=== PATIENT | male | born 1955 | race Caucasian/White ===

== ENCOUNTER 2017-12-01 11:28 | Emergency (ER) | payer MEDICAID ==
[2017-12-01 11:40] VITALS: BP 118/74; PULSE 66; RESP 20; TEMP 98; O2SAT 95
--- NOTE | 2017-12-01 12:13 | C.PDOC ---
History Of Present Illness 62-year-old male, presents to the emergency department with complaints of pain and swelling to right great toe for the past three days. States he tried to vut the nail, but symptoms did not improve. He notes some associated discharge coming from the area. Denies fever, numbness/weakness, or any other associated symptoms. No other complaints at this time. Time Seen by Provider: 12/01/17 11:57 Chief Complaint (Nursing): Lower Extremity Problem/Injury History Per: Patient History/Exam Limitations: no limitations Past Medical History Reviewed: Historical Data, Nursing Documentation, Vital Signs Vital Signs: Last Vital Signs Temp 98 F 12/01/17 11:38 Pulse 66 12/01/17 11:38 Resp 20 12/01/17 11:38 BP 118/74 12/01/17 11:38 Pulse Ox 95 12/01/17 12:50 - Medical History PMH: Anxiety, Asthma, Back Problems, Depression, Diabetes, HTN Surgical History: Appendectomy - [facility] Procedures ESOPHAGOGASTRODUODENOSCOPY [EGD] W/CLOSED BIOPSY (12/15/13) Family History: States: No Known Family Hx, Hypertension - Social History Hx Tobacco Use: No Hx Alcohol Use: Yes Hx Substance Use: No - Immunization History Hx Tetanus Toxoid Vaccination: No Hx Influenza Vaccination: Yes Hx Pneumococcal Vaccination: No Review Of Systems Constitutional: Negative for: Fever Musculoskeletal: Positive for: Other (R great toe pain) Physical Exam - Physical Exam Appears: Non-toxic, No Acute Distress Skin: Warm, Dry, No Rash Extremity: Other (R great toe: medial aspect with dried blood. No fluctuance and minimal erythema.) Pulses: Left Dorsalis Pedis: Normal, Right Dorsalis Pedis: Normal ED Course And Treatment O2 Sat by Pulse Oximetry: 95 (on RA) Pulse Ox Interpretation: Normal Medical Decision Making Medical Decision Making: no fluctuance, likely was parnoychia but apppears to have drained, will rx with po abx, follow up and return prec advised Disposition - Disposition Referrals: [facility] [Outside] Disposition: HOME/ ROUTINE Disposition Time: 12:11 Condition: STABLE Additional Instructions: Please follow up with your doctor. Return to the ER for any worsening symptoms, increasing pain/swelling/drainage, fever or for any other concerns. Prescriptions: Amoxicillin/Clavulanate [Augmentin 875 MG-125 MG] 1 tab PO BID #14 tab Sulfamethoxazole/Trimethoprim [Bactrim DS 800 mg-160 mg] 1 tab PO BID #14 tab Instructions: Paronychia (ED) Forms: Gen Discharge Inst Guinean, [facility] (Guinean) Print Language: CROATIAN - Clinical Impression Clinical Impression: Toe infection - Scribe Statement The provider has reviewed the documentation as recorded by the Scribe (Amol Enamorado) All medical record entries made by the Scribe were at my direction and personally dictated by me. I have reviewed the chart and agree that the record accurately reflects my personal performance of the history, physical exam, medical decision making, and the department course for this patient. I have also personally directed, reviewed, and agree with the discharge instructions and disposition.
== END 2017-12-01 12:20 | disposition home or self-care (01) ==
LOC: C.ER 11:28
DX: L08.9 Local infection of the skin and subcutaneous tissue, unspecified (principal)

== ENCOUNTER 2018-04-11 20:12 | Emergency (ER) | payer MEDICAID ==
[2018-04-11 20:30] VITALS: BP 138/73; PULSE 73; RESP 20; TEMP 98.1; O2SAT 97
--- NOTE | 2018-04-11 21:18 | C.PDOC ---
History Of Present Illness 63 year old male presents to the ED c/o acute swelling to the right parotid area that resolved [employer]. Patient was seen by Dr. Kemp earlier the week for and was treated with antibiotics. Patient denies fever, chills, nausea, vomit, diarrhea. Time Seen by Provider: 04/11/18 21:06 Chief Complaint (Nursing): ENT Problem History Per: Patient History/Exam Limitations: None Onset/Duration Of Symptoms: Days Current Symptoms Are (Timing): Still Present Quality (Mouth/Throat): Swelling Severity: None Anticoagulant/Antiplatlet Use?: No Recent Aspirin Use: No Past Medical History Reviewed: Historical Data, Nursing Documentation, Vital Signs Vital Signs: Last Vital Signs Temp 98.1 F 04/11/18 20:28 Pulse 73 04/11/18 20:28 Resp 20 04/11/18 20:28 BP 138/73 04/11/18 20:28 Pulse Ox 97 04/11/18 21:18 - Medical History PMH: Anxiety, Asthma, Back Problems, Depression, Diabetes, HTN Surgical History: Appendectomy - [facility] Procedures ESOPHAGOGASTRODUODENOSCOPY [EGD] W/CLOSED BIOPSY (12/15/13) Family History: States: Hypertension - Social History Hx Tobacco Use: No Hx Alcohol Use: Yes Hx Substance Use: No - Immunization History Hx Tetanus Toxoid Vaccination: No Hx Influenza Vaccination: Yes Hx Pneumococcal Vaccination: No Review Of Systems Constitutional: Negative for: Fever, Chills ENT: Positive for: Mouth Swelling, Throat Pain Cardiovascular: Negative for: Chest Pain Respiratory: Negative for: Cough, Shortness of Breath Gastrointestinal: Negative for: Nausea, Vomiting Skin: Negative for: Rash Neurological: Negative for: Weakness, Numbness Physical Exam - Physical Exam Appears: Non-toxic, No Acute Distress Skin: Normal Color, Warm, Dry Head: Atraumatic, Normacephalic Eye(s): bilateral: Normal Inspection Ear(s): Bilateral: Normal Oral Mucosa: Moist Throat: Erythema, No Exudate, Mass (B/L parotid glands, R > L ) Neck: Normal ROM, Supple Chest: Symmetrical Cardiovascular: Rhythm Regular, No Murmur Respiratory: Normal Breath Sounds, No Rales, No Rhonchi, No Wheezing Gastrointestinal/Abdominal: Soft, No Tenderness, No Guarding, No Rebound Extremity: Normal ROM, No Tenderness, No Swelling Neurological/Psych: Oriented x3, Normal Speech Gait: Steady ED Course And Treatment O2 Sat by Pulse Oximetry: 97 (ON RA) Pulse Ox Interpretation: Normal Medical Decision Making Medical Decision Making: h/o sialoliths with occasional salivery duct stones, already seen by PMD this week, taking PO ABX to prevent parotidtitis no acute swelling now + b/l parotid enlargement but pt denies alcohol abuse ? related to h/o psych meds or parotid stones. Disposition Doctor Will See Patient In The: Office Counseled Patient/Family Regarding: Studies Performed, Diagnosis - Disposition Referrals: James Mitchell MD [Staff Provider] - Aishwarya Kemp MD [Staff Provider] - Disposition: HOME/ ROUTINE Disposition Time: 21:18 Condition: GOOD Additional Instructions: continue to drink plenty of fluids to help prevent parotid gland stones Continue the antibiotics as prescribed by Dr. Kemp Consider referral to ENT for evaluation of chronic parotid gland stones. Instructions: Parotitis Forms: [facility] (Yakut) - Clinical Impression Clinical Impression: Parotid gland enlargement - Scribe Statement The provider has reviewed the documentation as recorded by the Scribe Kuldip Merino All medical record entries made by the Scribe were at my direction and personally dictated by me. I have reviewed the chart and agree that the record accurately reflects my personal performance of the history, physical exam, medical decision making, and the department course for this patient. I have also personally directed, reviewed, and agree with the discharge instructions and disposition.
== END 2018-04-11 21:27 | disposition home or self-care (01) ==
LOC: C.ER 20:12
DX: K11.1 Hypertrophy of salivary gland (principal); E11.9 Type 2 diabetes mellitus without complications; I10 Essential (primary) hypertension

== ENCOUNTER 2018-06-09 18:49 | Emergency (ER) | payer MEDICAID ==
[2018-06-09] MEDS ORDERED: Sodium Chloride 0.9% 1,000 ML IV ONE (20:55)
[2018-06-09 21:14] LABS: BASO # 0.1 K/uL (0.0-0.2); BASO % 0.9 % (0.0-2.0); EOS # 0.3 K/uL (0.0-0.7); EOS % 3.2 % (0.0-4.0); HEMOGLOBIN 13.4 g/dL (12.0-18.0); LYMPH # 3.4 K/uL (1.0-4.3); LYMPH % 37.5 % (20.0-40.0); MEAN CORPUSCULAR HGB CONC 34.5 g/dL (33.0-37.0); MEAN PLATELET VOLUME 7.9 fL (7.2-11.7); MONO # 0.7 K/uL (0.0-0.8); MONO % 7.9 % (0.0-10.0); NEUT # 4.5 K/uL (1.8-7.0); NEUT % 50.5 % (50.0-75.0); RBC 4.46 Mil/uL (4.40-5.90); RED CELL DISTRIBUTION WIDTH 14.1 % (11.5-14.5)
[2018-06-09] MEDS ORDERED: Sodium Chloride 0.9% 1,000 ML ONE (21:24)
[2018-06-09 21:28] VITALS: BP 137/87; PULSE 54; RESP 18; TEMP 98.2; O2SAT 97
[2018-06-09 21:29] LABS: ALB/GLOB RATIO 1.1 (1.0-2.1); ALBUMIN 4.1 g/dL (3.5-5.0); CALCIUM 9.3 mg/dl (8.6-10.4); GFR AFRICAN-AMERICAN > 60; GFR NON-AFRICAN AMERICAN > 60; LIPASE 66 U/L (23-300)
[2018-06-09 21:30] LABS: ALT/SGPT 26 U/L (21-72); AST/SGOT 25 U/L (17-59); BLOOD UREA NITROGEN 23 mg/dL (9-20)
[2018-06-09 21:33] LABS: SQUAMOUS EPITHIAL < 1 /hpf (0-5); URINE BILIRUBIN NEGATIVE (NEGATIVE); URINE BLOOD NEGATIVE (NEGATIVE); URINE CLARITY Clear (Clear); URINE COLOR Yellow (YELLOW); URINE GLUCOSE (UA) NORMAL (Normal); URINE LEUKOCYTE ESTERASE NEG Leu/uL (Negative); URINE PROTEIN NEGATIVE (NEGATIVE)
--- NOTE | 2018-06-09 21:59 | C.PDOC ---
Time Seen by Provider: 06/09/18 19:45 Chief Complaint (Nursing): ENT Problem History Per: Patient Onset/Duration Of Symptoms: Days (about 1 month) Current Symptoms Are (Timing): Still Present Associated Symptoms: Fever, Sore Throat, Other (Mouth pain) Severity: Moderate Additional History Per: Prior Records Past Medical History Reviewed: Historical Data, Nursing Documentation, Vital Signs Vital Signs: Last Vital Signs Temp 98.2 F 06/09/18 21:28 Pulse 54 L 06/09/18 21:28 Resp 18 06/09/18 21:28 BP 137/87 06/09/18 21:28 Pulse Ox 97 06/09/18 22:02 - Medical History PMH: Anxiety, Asthma, Back Problems, Depression, Diabetes, HTN Surgical History: Appendectomy - [facility] Procedures ESOPHAGOGASTRODUODENOSCOPY [EGD] W/CLOSED BIOPSY (12/15/13) Family History: States: Hypertension - Social History Hx Tobacco Use: No Hx Alcohol Use: Yes Hx Substance Use: No - Immunization History Hx Tetanus Toxoid Vaccination: No Hx Influenza Vaccination: Yes Hx Pneumococcal Vaccination: No Review Of Systems Except As Marked, All Systems Reviewed And Found Negative. Constitutional: Positive for: Fever Eyes: Positive for: Eyelid Inflammation (left) ENT: Positive for: Mouth Pain, Throat Pain Cardiovascular: Negative for: Chest Pain Respiratory: Negative for: Cough, Shortness of Breath Gastrointestinal: Positive for: Nausea, Abdominal Pain (epigastric). Negative for: Vomiting, Diarrhea Genitourinary: Negative for: Dysuria Musculoskeletal: Negative for: Neck Pain, Back Pain Skin: Negative for: Rash Neurological: Negative for: Weakness, Numbness Physical Exam - Physical Exam Appears: Non-toxic, No Acute Distress Skin: Normal Color, Warm, Dry Head: Atraumatic, Normacephalic Eye(s): bilateral: PERRL, EOMI, right: Normal Inspection, left: Eyelid Inflammation (upper) Ear(s): Bilateral: Normal Oral Mucosa: Moist, No Drooling, No Trismus, Other (Lesions on b/l buccal side of cheeks) Tongue: Normal Appearing Throat: Erythema, No Exudate, No Drooling, No Mass Neck: Normal ROM, Supple Cardiovascular: Rhythm Regular Respiratory: Normal Breath Sounds, No Accessory Muscle Use Gastrointestinal/Abdominal: Soft, No Tenderness, No Organomegaly Back: No CVA Tenderness Extremity: Normal ROM, No Pedal Edema, No Calf Tenderness Neurological/Psych: Oriented x3, Normal Speech, Normal Motor, Normal Sensation ED Course And Treatment - Laboratory Results Result Diagrams: 06/09/18 21:09 06/09/18 21:09 Interpretation Of Abnormal: Monospot is positive O2 Sat by Pulse Oximetry: 97 Pulse Ox Interpretation: Normal Progress - Interventions Interventions:: Observation, Intravenous fluid - Medications Administered Intravenous: Corticosteroid, H-2 thelma - Data Reviewed Data Reviewed: Lab, Old records - Patient Status Patient status: Mostly improved - Continuity of Care Discussed patient case with:: Patient, ED Nurse - Patient Plan Patient Plan: Discharge, F/U with PCP Disposition Counseled Patient/Family Regarding: Studies Performed, Diagnosis, Need For Followup, Rx Given - Disposition Referrals: Aishwarya Torres MD [Staff Provider] - Aidan Lance [Staff Provider] - Disposition: HOME/ ROUTINE Disposition Time: 22:05 Condition: IMPROVED Additional Instructions: Avoid contact sports or any situation that can result in abdominal trauma. Drink plenty of fluids. Follow up with your doctor and with an Lens Silverer ( eye doctor) for further evaluation and treatment. Return to the ER if you develop worsening of symptoms or if you have any other concerns. Prescriptions: Erythromycin 0.5% [Ilytocin] 1 applic OS QID #1 tube Methylprednisolone [Medrol] 1 dose PO DAILY #1 packet Instructions: Mononucleosis (DC) Forms: [employer] (Mosotho) Print Language: GIBRALTARIAN - Clinical Impression Clinical Impression: Mononucleosis
== END 2018-06-09 22:25 | disposition home or self-care (01) ==
LOC: C.ER 18:49
DX: B27.90 Infectious mononucleosis, unspecified without complication (principal)
CPT/HCPCS: 80053; 81001; 83690; 85025; 86308; 96361; 96374; 96375; 99284; J2930; J7030

== ENCOUNTER 2019-01-19 19:29 | Emergency (ER) | payer MEDICAID ==
[2019-01-19 19:44] VITALS: RESP 18; TEMP 99.7; O2SAT 94
--- NOTE | 2019-01-19 19:59 | C.PDOC ---
History Of Present Illness 63 year old male presents with cough and fever for the past few weeks, more so tonight w/ bilateral frontal headache. Denies nausea, vomiting, or LOC. Chief Complaint (Nursing): Flu-like Symptoms History Per: Patient History/Exam Limitations: no limitations Onset/Duration Of Symptoms: Days Current Symptoms Are (Timing): Still Present Associated Symptoms: Fever, Cough, Other (Headache. No LOC.). denies: Nausea, Vomiting Recent travel outside of the [place]: No Past Medical History Reviewed: Historical Data, Nursing Documentation, Vital Signs Vital Signs: Last Vital Signs Temp 99.7 F H 01/19/19 19:41 Pulse 110 H 01/19/19 19:41 Resp 18 01/19/19 19:41 BP 132/80 01/19/19 19:41 Pulse Ox 94 L 01/19/19 19:41 - Medical History PMH: Anxiety, Asthma, Back Problems, Depression, Diabetes, HTN Surgical History: Appendectomy - [facility] Procedures ESOPHAGOGASTRODUODENOSCOPY [EGD] W/CLOSED BIOPSY (12/15/13) Family History: States: Hypertension - Social History Hx Tobacco Use: No Hx Alcohol Use: Yes Hx Substance Use: No - Immunization History Hx Tetanus Toxoid Vaccination: No Hx Influenza Vaccination: Yes Hx Pneumococcal Vaccination: No Review Of Systems Constitutional: Positive for: Fever Cardiovascular: Negative for: Chest Pain, Palpitations Respiratory: Positive for: Cough Gastrointestinal: Negative for: Nausea, Vomiting Neurological: Positive for: Headache. Negative for: Other (LOC) Physical Exam - Physical Exam Appears: Non-toxic, Other (Alert, conscious) Skin: Normal Color, Warm, Dry Head: Atraumatic, Normacephalic Eye(s): bilateral: Normal Inspection, PERRL, EOMI Ear(s): Bilateral: Normal Oral Mucosa: Moist Throat: Normal, No Erythema, No Exudate Neck: Normal, Supple Chest: Symmetrical, No Tenderness Cardiovascular: Rhythm Regular, No Murmur Respiratory: No Rales, Rhonchi, No Wheezing Gastrointestinal/Abdominal: Soft, No Tenderness Neurological/Psych: Oriented x3, Normal Speech ED Course And Treatment - Laboratory Results Result Diagrams: 01/19/19 20:38 01/19/19 20:38 O2 Sat by Pulse Oximetry: 94 (Room air) Pulse Ox Interpretation: Normal Progress Note: CT head, EKG, CXR, and urinalysis ordered. IV fluids and toradol administered. Disposition Counseled Patient/Family Regarding: Diagnosis - Disposition Referrals: [facility] [Outside] Disposition: HOME/ ROUTINE Disposition Time: 21:04 Condition: STABLE Prescriptions: Azithromycin [Zithromax] 500 mg PO DAILY #7 tablet guaiFENesin/Dextromethorphan [guaiFENesin-DM] 5 ml PO QID #120 ml Instructions: Bacterial Upper Respiratory Infection, Adult (DC) Forms: [employer] (Nicaraguan), Gen Discharge Inst Greek Print Language: MALTESE - POA Present On Arrival: None - Clinical Impression Clinical Impression: Upper respiratory infection - Scribe Statement The provider has reviewed the documentation as recorded by the Scribe Medhat Noel All medical record entries made by the Jose Juanibe were at my direction and personally dictated by me. I have reviewed the chart and agree that the record accurately reflects my personal performance of the history, physical exam, medical decision making, and the department course for this patient. I have also personally directed, reviewed, and agree with the discharge instructions and disposition.
[2019-01-19] MEDS ORDERED: Sodium Chloride 0.9% 1,000 ML ONE (20:01)
[2019-01-19] MEDS: Sodium Chloride 0.9% 1,000 ML IV ONE (20:09)
[2019-01-19 20:45] LABS: BASO # 0.2 K/uL (0.0-0.2); BASO % 1.8 % (0.0-2.0); EOS # 0.1 K/uL (0.0-0.7); EOS % 0.8 % (0.0-4.0); HEMOGLOBIN 13.3 g/dL (12.0-18.0); LYMPH # 0.8 K/uL (1.0-4.3); LYMPH % 9.3 % (20.0-40.0); MEAN CELL VOLUME 89.5 fL (80.0-94.0); MEAN CORPUSCULAR HEMOGLOBIN 28.6 pg (27.0-31.0); MEAN CORPUSCULAR HGB CONC 31.9 g/dL (33.0-37.0); MEAN PLATELET VOLUME 8.7 fL (7.2-11.7); MONO # 0.7 K/uL (0.0-0.8); MONO % 8.2 % (0.0-10.0); NEUT # 6.8 K/uL (1.8-7.0); NEUT % 79.9 % (50.0-75.0); NRBC % 0.1 % (0.0-2.0); PLATELET COUNT 289 K/uL (130-400); RBC 4.66 Mil/uL (4.40-5.90); RED CELL DISTRIBUTION WIDTH 14.2 % (11.5-14.5); WHITE BLOOD COUNT 8.5 K/uL (4.8-10.8)
[2019-01-19 20:59] LABS: ALB/GLOB RATIO 1.2 (1.0-2.1); ALBUMIN 4.3 g/dL (3.5-5.0); ALT/SGPT 15 U/L (21-72); AST/SGOT 23 U/L (17-59); BLOOD UREA NITROGEN 14 mg/dL (9-20); CALCIUM 9.2 mg/dl (8.6-10.4); GFR NON-AFRICAN AMERICAN > 60
[2019-01-19 21:20] LABS: URINE BILIRUBIN NEGATIVE (NEGATIVE); URINE BLOOD NEGATIVE (NEGATIVE); URINE CLARITY Clear (Clear); URINE COLOR Yellow (YELLOW); URINE GLUCOSE (UA) NORMAL (Normal); URINE LEUKOCYTE ESTERASE NEG Leu/uL (Negative); URINE PROTEIN NEGATIVE (NEGATIVE)
[2019-01-19 21:43] VITALS: BP 119/71; PULSE 97
[2019-01-19 23:15] LABS: BANDS 1 % (0-2); LYMPHOCYTE 12 % (20-40); MONOCYTE 10 % (0-10); NEUTROPHIL 77 % (50-75); PLATELET ESTIMATE NORMAL (NORMAL); TOTAL CELLS COUNTED 100
--- NOTE | 2019-01-20 08:21 | CT ---
Date of service: 01/19/2019 PROCEDURE: CT HEAD WITHOUT CONTRAST. HISTORY: Headache COMPARISON: 08/16/2012 TECHNIQUE: Axial computed tomography images were obtained through the head/brain without intravenous contrast. Radiation dose: Total exam DLP = 1088.67 mGy-cm. This CT exam was performed using one or more of the following dose reduction techniques: Automated exposure control, adjustment of the mA and/or kV according to patient size, and/or use of iterative reconstruction technique. FINDINGS: HEMORRHAGE: No intracranial hemorrhage. BRAIN: No mass effect or edema. Scattered focal lucencies in the subcortical and periventricular white matter suggestive for chronic microvascular ischemic change. VENTRICLES: Unremarkable. No hydrocephalus. CALVARIUM: Unremarkable. PARANASAL SINUSES: Mild mucosal thickening of the ethmoid air cells. MASTOID AIR CELLS: Unremarkable as visualized. No inflammatory changes. OTHER FINDINGS: None. IMPRESSION: No acute intracranial abnormality. Chronic microvascular ischemic changes. Sinus mucosal disease. If symptoms persists, consider correlation with MRI. A preliminary report was generated at 8:58 p.m. on 01/19/[address] Kirill Boothe from [facility].
--- NOTE | 2019-01-20 12:40 | RAD ---
HISTORY: cough / congestion COMPARISON: Chest x-ray performed 01/29/13 TECHNIQUE: Chest PA and lateral FINDINGS: LUNGS: No focal consolidation. Please note that chest x-ray has limited sensitivity for the detection of pulmonary masses. PLEURA: No significant pleural effusion identified. No definite pneumothorax . CARDIOVASCULAR: Heart size appears top normal. OSSEOUS STRUCTURES: Degenerative changes of the spine. VISUALIZED UPPER ABDOMEN: Unremarkable. OTHER FINDINGS: None. IMPRESSION: No focal consolidation.
== END 2019-01-19 21:42 | disposition home or self-care (01) ==
LOC: C.ER 19:29
DX: J06.9 Acute upper respiratory infection, unspecified (principal); I10 Essential (primary) hypertension; J45.909 Unspecified asthma, uncomplicated
CPT/HCPCS: 70450; 71046; 80053; 81001; 84484; 85025; 96374; 99282; J1885; J7030